=== PATIENT | male | born 1940 ===

== ENCOUNTER 2024-07-15 20:55 | Outpatient (REF) | payer MEDICARE, SELFPAY ==
[2024-07-15 21:27] LABS: Abs Immature Grans 0.02 10^3/uL (0.0-0.06); Absolute Basophil Count 0.05 10^3/uL (0.0-0.2); Absolute Eosinophil Count 0.06 10^3/uL (0.0-0.7); Absolute Lymphocyte Count 0.84 10^3/uL (1.2-3.4); Absolute Monocyte Count 0.95 10^3/uL (0.1-0.8); Absolute Neutrophil Count 5.22 10^3/uL (1.2-6.7); Basophils % 0.7 %; Eosinophils % 0.8 %; HCT 30.5 % (40.0-50.0); HGB 9.6 g/dL (13.5-17.5); Immature Grans % 0.3 %; Lymphocytes % 11.8 %; MCH 29.3 pg (27.0-33.0); MCHC 31.5 % (32.0-36.0); MCV 93 fL (80-95); MPV 9.9 fL (8.0-11.0); Monocytes % 13.3 %; Neutrophils % 73.1 %; Platelet Count 214 10^3/uL (130-400); RBC 3.28 10^6/uL (4.36-5.78); RDW 13.2 % (11.8-14.1); RDW-SD 45.1 fL; WBC 7.14 10^3/uL (4.4-10.8)
[2024-07-15 21:47] LABS: ALT 25 U/L (16-63); AST 32 U/L (15-37); Albumin 2.6 g/dL (3.4-5.0); Alkaline Phosphatase 91 U/L (46-116); Anion Gap 7.3 mmol/L (3-11); BUN 56 mg/dL (7-18); Bilirubin, Total 0.32 mg/dL (0.2-1.0); CO2 24.7 mmol/L (21.0-32.0); Calcium 9.4 mg/dL (8.5-10.1); Chloride 100 mmol/L (98-107); Estimated GFR 13.05 (mL/min/1.73m2); FREE T4 1.14 ng/dL (0.76-1.46); Glucose 118 mg/dL (74-106); Potassium 5.1 mmol/L (3.5-5.1); Sodium 132 mmol/L (136-145); TSH 1.48 uIU/Ml (0.36-3.74); Total Protein 7.7 g/dL (6.4-8.2)
[2024-07-15 22:05] LABS: CREATININE 4.3 mg/dL (0.70-1.30)
== END 2024-07-15 20:56 | disposition home or self-care (01) ==
LOC: LBN 20:55
PROVIDERS: Visit Provider Nurse Practitioner Family
DX: R53.83 Other fatigue (principal)
CPT/HCPCS: 80053; 84439; 84443; 85025